=== PATIENT | female | born 1985 | race Caucasian/White ===

== ENCOUNTER 2018-03-04 16:35 | Emergency (ER) | payer MEDICAID ==
[2018-03-04] MEDS: HYDROCODONE/APAP (10/325) TAB PO (17:16)
[2018-03-04] MEDS: KETOROLAC 30 MG INJ IM (17:28)
[2018-03-04] MEDS: CLINDAMYCIN 300 MG INJ IM (17:28)
== END 2018-03-04 17:39 | disposition home or self-care (01) ==
LOC: FTE 16:35
DX: K04.7 Periapical abscess without sinus (principal); J45.909 Unspecified asthma, uncomplicated
CPT/HCPCS: 81025; 96372; 99284-25

== ENCOUNTER 2018-12-20 19:49 | Emergency (ER) | payer SELFPAY, MEDICAID | END 2018-12-21 02:01 | disposition left against medical advice (07) | LOC: FTE 19:49 | DX: Z53.21 Procedure and treatment not carried out due to patient leaving prior to being seen by health care provider (principal) ==

== ENCOUNTER 2019-01-30 22:03 | Emergency (ER) | payer MEDICAID, OTHER ==
[2019-01-30] MEDS: METHYLPREDNISOLONE 125 MG INJ IM (22:30)
[2019-01-30] MEDS: IPRATROPIUM (NEB) 0.5 MG/2.5 ML AMP HHN (23:16)
[2019-01-30] MEDS: ALBUTEROL 0.083% (NEB) 2.5 MG/3 ML AMP HHN (23:16)
== END 2019-01-31 00:25 | disposition home or self-care (01) ==
LOC: FTE 01-31 00:25
DX: J45.901 Unspecified asthma with (acute) exacerbation (principal)
CPT/HCPCS: 94664; 96372; 99284-25